=== PATIENT | female | born 1960 | race Caucasian/White ===

== ENCOUNTER → 2023-12-18 08:51 | Outpatient (REF) | payer OTHER, SELFPAY | LOC: PAVMRI 08:51 | PROVIDERS: ATTENDING PHYSICIAN Nurse Practitioner Primary Care; FAMILY PHYSICIAN Internal Medicine Geriatric Medicine | DX: H81.399 Other peripheral vertigo, unspecified ear (principal); G43.019 Migraine without aura, intractable, without status migrainosus | CPT/HCPCS: 70544; 70553; A9575 ==

== ENCOUNTER 2024-06-05 16:28 | Emergency (ER) | payer OTHER, SELFPAY ==
[2024-06-05 16:30] VITALS: BP 120/89
[2024-06-05 17:12] LABS: % Basophils 0.7 % (0-2); % Eosinophils 3.5 % (0-6); % Immature Granulocytes 0.1 % (0-0.5); % Lymphocytes 29.5 % (20.5-51.1); % Monocytes 8.2 % (1.7-9.3); Absolute Basophils 0.1 10^3/uL (0-0.2); Absolute Eosinophils 0.2 10^3/uL (0-0.7); Absolute Monocytes 0.6 10^3/uL (0.1-0.6); Hemoglobin 12.8 g/dL (12.0-16.0); Mean Corp Hgb Conc. 33.7 g/dL (33.0-37.0); Mean Corpuscular Hgb 29.4 pg (27.0-31.0); Mean Corpuscular Volume 87.2 fL (81.0-99.0); Mean Platelet Volume 10.5 fL (7.4-10.4); Nucleated Red Blood Cells % 0 %; Platelet Count 283 10^3/uL (130-400); Red Blood Cell Count 4.36 10^6/uL (4.20-5.40); Red Cell Dist. Width 12.4 % (11.5-14.5); White Blood Cell Count 6.8 10^3/uL (4.8-10.8)
[2024-06-05 17:22] LABS: ALT (SGPT) 29 U/L (0-35); AST (SGOT) 29 U/L (14-36); Albumin 4.4 g/dl (3.5-5.0); Alkaline Phosphatase 56 U/L (38-126); Blood Urea Nitrogen 18 mg/dl (7-17); Calcium 9.6 mg/dl (8.4-10.2); Carbon Dioxide 26 mmol/L (22-30); Chloride 107 mmol/L (98-107); Glucose 94 mg/dl (70-99); Lipase 296 U/L (23-300); Potassium 5.1 mmol/L (3.5-5.1); Sodium 140 mmol/L (135-145); Total Protein 7.4 g/dl (6.3-8.2); eGFR > 60.00
[2024-06-05 18:40] VITALS: BP 122/90
[2024-06-05 18:50] VITALS: BMI 25.2
[2024-06-05] MEDS: NSS 1000 IV (19:48)
[2024-06-05] MEDS: TORADOL 30 MG IV (19:48)
[2024-06-05] MEDS: DILAUDID 0.5 MG IV (19:48)
--- NOTE | 2024-06-05 19:52 | ED.GENMED ---
History of Present Illness
General
Chief Complaint: Abdominal Pain
Source: patient
Exam Limitations: none
Time Seen by Provider: 06/05/24 19:09
Nursing documentation reviewed up to this point in time: agreed with
History of Present Illness
History of Present Illness:
64 y/o F
h/o HLD
here with pain in her RUQ and R back taht started 3 days ago
feels very uncomfortable;
pt cannot sleep
lack of appetite and some nausea
no vomiting, nof ever, nod iarrhea
no urinary symptoms
said her skin is sensitive to touch
she has not seen a rash
tried tylenol and motrin without relief
started monjauro in mar and already lost 25 pounds
thinks iti s related to that
Past History
Past History
ED Past Medical History: GERD, Hypercholesterolemia and Hypothyroidism
ED Past Surgical History:
Social History
Tobacco: Non-smoker
Alcohol: Occasional
Drug: None
Personal:
Living: with family
Review of Systems
Review of Systems
Allergies reviewed?: Yes
All Other Systems: Not applicable
Phy Exam
Physical Exam
Physical Exam:
GENERAL: Alert , in no apparent distress
EYE: pupils equal and reactive
NECK: Supple
ENT: o/p clr, mmm.
CARDIAC: Regular rate and rhythm .
LUNGS: Clear breath sounds bilaterally, no acute respiratory distress, no wheezes/rales/rhonchi
CHEST: UNDER R BREAST PT HAS VESICULAR ERYTHMEATOUS RASH
BACK: SCATTERED FEW VESICLES FAITNLY ERYTHEMATOUS, TENDER TO TOUCH TO R SIDE\\
ABDOMEN: Soft, without focal tenderness, no r/g, no cvat, normal bowel sounds
NEUROLOGICAL: Alert and oriented, no focal neuro deficits
SKIN: Warm and dry, skin intact.
MUSCULOSKELETAL: No edema, well perfused. neg tomás's sign
PSYCH: Normal and appropriate interaction.
Course
Orders/Labs/Results
Orders:
Orders
06/05/24 16:41
Complete Blood Count/With Diff Urgent
Comprehensive Metabolic Panel Urgent
Lipase Urgent
06/05/24 19:34
0.9% Sodium Chloride 1000 ml [Nss] 1,000 ml IV BOLUS
HYDROmorphone [Dilaudid] 0.5 mg IV NOW STA
Ketorolac [Toradol] 30 mg IV NOW STA
Valacyclovir HCl [Valtrex] 1,000 mg PO NOW STA
Abnormal Lab Results
06/05/24
16:41
MPV 10.5 H fL
(7.4-10.4)
BUN 18 H mg/dl
(7-17)
06/05/24 16:41
06/05/24 16:41
Vital Signs
Initial and Last Documented VS:
Initial Vital Signs
Temp Pulse Resp BP Pulse Ox
36.9 C 95 18 120/89 98
06/05/24 16:30 06/05/24 16:30 06/05/24 16:30 06/05/24 16:30 06/05/24 16:30
Last Documented Vital Signs
Temp Pulse Resp BP Pulse Ox
36.9 C 78 18 118/85 99
06/05/24 16:30 06/05/24 21:02 06/05/24 21:02 06/05/24 21:02 06/05/24 21:02
MDM/Problems Addressed
Differential Diagnosis Includes:
shingles, cholelithaisis
MDM/Problems Addressed:
64 y/o F
h/o NIDDM
on monjaro for a few mo
here with RUQ/R flank pain that started af ew days ago constant, cant sleep, skin issensitive
no fever/vomiting
some mild nausea
pt is convinced this is side effect of GB disease from [place]
she did not notice vesicular rash int his region on her back and under her left breast
pt has never had shinles but has had chilcken pox as a child
having a lot of pain and a ehadache and feels dehydrated, hasn't slept
labs reviewed, lfts normal
unlikely also GB disease
iv meds for headache/[pain improved symptoms
valacyclovir given
tylenol tid
motrin tid
and prn oxy q6
spaced out 1 dose gabapentin at night
f/u pcp
*Critical Care Note
Total Time (30-74mins, 75-104mins- exclusive of procedures): Not Applicable
ED Attending Note
-
Portions of this chart may have been created with voice recognition software.� Occasional wrong word or��sound alike� substitutions may have occurred due to the inherent limitations of voice recognition software.
Discharge Plan
Departure
Patient Disposition: Home (Routine Discharge)
Date of Disposition: 06/05/24
Time of Disposition: 20:37
Patient with high blood pressure during this ER visit?: No
Condition: Fair
Covid-19: Not Applicable
Discharge Problem:
Shingles
Instructions: Shingles
Prescriptions:
New
oxycodone 5 mg tablet
5 mg PO Q8H PRN (Reason: Pain) Qty: 15 0RF
valacyclovir 1 gram tablet
1,000 mg PO BID Qty: 14 0RF
gabapentin 100 mg capsule
100 mg PO HS Qty: 10 0RF
No Action
atorvastatin 20 MG tablet
20 mg PO DAILY
levothyroxine 75 MCG tablet
75 mcg PO DAILY
Referrals:
Robby Aguilar DO [Family Provider] - Follow up in 2-3 days
Activity Restrictions/Additional Instructions:
Your pain is due to shingles. It is a reactivation of the chickenpox virus. Take Valtrex twice a day for 7 days to hopefully shorten the length of your symptoms. For pain take Tylenol 3 times a day. Take Motrin 3 times a day. For additional
pain you can take oxycodone 5 mg every 4-6 hours as needed. This may make you sleepy, do not combine with alcohol. At nighttime spaced out from the oxycodone at least by 2 hours you can use gabapentin. If you need further pain control please
speak with your family doctor. Return for any concerns
Interventions
Interventions:
*Risk Screen - Suicide Last Done: 06/05/24 16:30
*General Assessment Last Done: 06/05/24 16:30
*Neglect/Abuse Screening Last Done: 06/05/24 16:30
*ED- Fall Risk Assessment Last Done: 06/05/24 16:30
*ED COVID-19 Vaccine History Last Done: 06/05/24 16:30
*Nursing Disposition Last Done: 06/05/24 21:01
[facility]ey[facility] Assessment Last Done: 06/05/24 18:51
Discharge Date and Time
Discharge Date/Time: 06/05/24 21:05
Print Language: PORTUGUESE
[2024-06-05] MEDS: VALTREX 1000 MG PO (19:55)
[2024-06-05 21:02] VITALS: BP 118/85
== END 2024-06-05 21:05 | disposition home or self-care (01) ==
LOC: EMR 16:28
PROVIDERS: Emergency Medicine; EMERGENCY PHYSICIAN Emergency Medicine; FAMILY PHYSICIAN Internal Medicine
DX: B02.9 Zoster without complications (principal); E03.9 Hypothyroidism, unspecified; E78.00 Pure hypercholesterolemia, unspecified; M54.9 Dorsalgia, unspecified
CPT/HCPCS: 96374; 96375; 96361; 99284; 80053; 83690; 85025